=== PATIENT | female | born 1985 | race Caucasian/White ===

== ENCOUNTER 2020-01-06 01:35 | Inpatient (IN) | payer BC ==
[~2020-01-06] VITALS: Ht 175.3 cm; Wt 72.0 kg
[2020-01-06] MEDS ORDERED: ONDANSETRON 2MG/ML, 2ML IVPush ONE (02:00)
[2020-01-06] MEDS ORDERED: SODIUM CHLORIDE FLUSH 10ML SYR IVF ONE (02:00)
[2020-01-06] MEDS ORDERED: SODIUM CHLORIDE 0.9% 1,000ML IVBOLUS ONE (02:00)
[2020-01-06] MEDS ORDERED: HYDROmorphone 2 MG/ML, 1ML ONE ×2 (02:16→05:20)
[2020-01-06] MEDS ORDERED: ONDANSETRON 2MG/ML, 2ML ONE (02:16)
[2020-01-06] MEDS: HYDROmorphone 2 MG/ML, 1ML IVPush PRN ×2 (02:19→03:00)
[2020-01-06 02:25] LABS: BASOPHILS % (AUTO) 2 % (0-1); EOSINOPHILS % (AUTO) 4 % (1-7); LYMPHOCYTES % (AUTO) 35 % (22-44); MEAN CORPUSCULAR HEMOGLOBIN 31.8 pg (27.0-34.8); MEAN CORPUSCULAR HGB CONC 33.6 g/dL (32.4-35.8); MEAN PLATELET VOLUME 7.7 fL (7.4-10.4); MONOCYTES % (AUTO) 10 % (2-9); NEUTROPHILS % (AUTO) 50 % (42-75); PLATELET COUNT 484 x10^3/uL (130-400); RED BLOOD COUNT 4.27 x10^6/uL (3.82-5.3); RED CELL DISTRIBUTION WIDTH 12.9 % (9.6-15.2)
[2020-01-06 02:26] LABS: MD NO
--- NOTE | 2020-01-06 02:26 | NUR ---
IVF INFUSING, WO. MEDICATED PER ORDER. PT IN NAD, RR EQUAL AND UNLABORED. VSS. WILL CONTINUE TO MONITOR.
[2020-01-06 02:34] LABS: ALBUMIN 3.2 g/dL (3.4-5.0); ANION GAP 7 mmol/L (5-15); CALCIUM 8.6 mg/dL (8.5-10.1); CHLORIDE 107 mmol/L (98-107)
[2020-01-06 02:39] LABS: ALANINE AMINOTRANSFERASE 24 U/L (12-78); ALKALINE PHOSPHATASE 78 U/L (45-117); BILIRUBIN,TOTAL 0.3 mg/dL (0.2-1.0); CREATININE 0.79 mg/dL (0.55-1.02)
--- NOTE | 2020-01-06 02:52 | NUR ---
VS STABLE, PT SITTING UP TAKING PICTURE. REPORTS PAIN 4/10.
--- NOTE | 2020-01-06 03:16 | NUR ---
IVF INFUSED, RR EQUAL AND UNLABORED. DR SUAREZ TO ADMIT PT FOR INTRACTABLE PAIN.
[2020-01-06] MEDS ORDERED: morphine SULFATE 10 MG/ML, 1ML IVPush PRN (04:00)
[2020-01-06] MEDS: SODIUM CHLORIDE 0.9% 1,000 ML IV SCH ×2 (04:00→10:40)
[2020-01-06] MEDS ORDERED: ONDANSETRON 2MG/ML, 2ML IVPush PRN (04:00)
[2020-01-06] MEDS ORDERED: HYDROmorphone 1 MG/ML, 1ML INJ IM PRN ×2 (05:00→07:00)
--- NOTE | 2020-01-06 05:58 | NUR ---
IVF AT MAINT RATE, WAITING FOR ADMIN. ON CONT PULSE OX B/P.
[2020-01-06] MEDS ORDERED: HYDROcodone/APAP 5/325 TABLET ONE ×3 (06:41→21:04)
[2020-01-06] MEDS: HYDROcodone/APAP 5/325 TABLET PO PRN ×3 (06:43→21:11)
--- NOTE | 2020-01-06 06:47 | NUR ---
LAB DRAWING AM LABS. PT GIVEN X1 PO NORCO FOR BREAK THROUGH 07/04 PAIN. WAITING FOR MED/SURG BED. VSS.
[2020-01-06 07:03] LABS: CHLORIDE 111 mmol/L (98-107)
[2020-01-06 07:06] LABS: ANION GAP 8 mmol/L (5-15); CALCIUM 8.1 mg/dL (8.5-10.1); CREATININE 0.64 mg/dL (0.55-1.02)
--- NOTE | 2020-01-06 07:10 | NUR ---
REPORT TO ADAM SANTILLAN
--- NOTE | 2020-01-06 08:23 | NUR ---
pt placed on hospital bed admitting at beside
[2020-01-06] MEDS ORDERED: LISINOPRIL 10 MG TABLET PO SCH (09:00)
--- NOTE | 2020-01-06 09:00 | NUR ---
REPORT RECEIVED FROM ADAM SANTILLAN, THIS RN ASSUMING CARE.
[2020-01-06 09:02] LABS: CHOL/HDL RATIO 4.1
[2020-01-06 09:03] LABS: LDL/HDL RATIO 2.2 (0.5-3.0)
[2020-01-06] MEDS ORDERED: HYDROmorphone 1 MG/ML, 1ML INJ ONE ×4 (10:08→19:49)
--- NOTE | 2020-01-06 10:16 | NUR ---
TASK RN: PT MED NOTED FOR ABD PAIN, 12/04. PULSE OX IN PLACE, SP02 = 100% ON RA. VSS
[2020-01-06] MEDS: LACTATED RINGERS 1,000 ML IV SCH ×3 (10:29→21:23)
--- NOTE | 2020-01-06 10:30 | NUR ---
PT MEDICATED BY TASK RN FARIBA FOR RIGHT UPPER ABD PAIN THAT RADIATES TO BACK, STATES PAIN HAS BEEN HERE SINCE DX OF PANCREATITIS. PT TOLERATING WATER BUT NOT WANTING TO TAKE ANY OF CLEAR LIQUID TRAY. PT A&O, RESPS EVEN AND UNLABORED. PT EDUCATED REGARDING POC, STILL HOLDING FOR MED/SURG FLOOR. PT ON HOSPITAL BED. PT DENIES ANY NEEDS AT THIS TIME.
--- NOTE | 2020-01-06 10:38 | NUR ---
UC NOTIFIED OF NEED TO REQUEST RECORDS FROM [facility].
--- NOTE | 2020-01-06 10:56 | NUR ---
ASHLYN RN: PT SITTING UP IN BED, USING PHONE TO TEXT. APPEARS MUCH ORE RELAXED, RATES PAIN 7/10. IVF INFUSING W/O DIFFICULTY, VSS, CALL LIGHT W/I REACH
[2020-01-06] MEDS ORDERED: HYDROmorphone 1 MG/ML, 1ML INJ IVPush PRN (11:00)
--- NOTE | 2020-01-06 12:25 | NUR ---
PT STATING ABDOMINAL PAIN INTOLERABLE, REFUSING NORCO STATING THAT IT DID NOT HELP. PT IS A&O, RESPS EVEN AND UNLABORED. KEPT NPO, NO N/V AT THIS TIME. PARTIAL RECORDS RECEIVED FROM [facility], REVIEWED WITH MD JIMENEZ. HOSPITALIST SARBJIT CALLED, NO ANSWER, MESSAGE LEFT WITH CALLBACK REQUEST TO INCREASE FREQUENCE OF DILAUDID DOSING PER PT REQUEST.
--- NOTE | 2020-01-06 12:44 | NUR ---
all imaging results received from [facility], results reviewed with MD Glass.
[2020-01-06] MEDS: HYDROmorphone 1 MG/ML, 1ML INJ IVPush PRN ×4 (13:21→23:06)
--- NOTE | 2020-01-06 13:33 | NUR ---
PT MEDICATED PER EMAR, REPORTING PAIN RELIEF S/P DILAUDID. PT A&O, RESPS EVEN AND UNLABORED. PT ATTACHED TO BP AND SPO2 MONITORS. CALL LIGHT IN EACH. PT EDUCATED TO REMAIN IN BED AND CALL FOR ASSIST NEEDED. PT EDUCATED TO REMAIN NPO. THIS RN SPOKE WITH MK SCHAFFER WHO STATES SURGICAL CONSULT HAS BEEN PLACED, AWAITING SURGEON EVAL AT THIS TIME.
[2020-01-06] MEDS ORDERED: birth control PO (14:47)
[2020-01-06] MEDS ORDERED: SUMA100T3 PO (14:47)
--- NOTE | 2020-01-06 14:48 | NUR ---
lab called RN to notify that pt has an uncollected ua order. pt states she voided approx 30 min ago. supplies provided at bedside for clean catch. pt instructed to provide urine sample when able. call light in reach. pt a&o, resps even and unlabored. pt reports abd pain at tolerable level. pt denies needs at this time.
--- NOTE | 2020-01-06 15:20 | NUR ---
report given to RNs Anastasiia and Shirin at bedside. pt a&o, resps even and unlabored. pt has no complaint at this time. plan of care reviewed at bedside.
--- NOTE | 2020-01-06 15:52 | NUR ---
PT RESTING IN GURNEY, PT STATES PAIN IS 9/10. PT MEDICATED PER EMAR, NO OTHER COMPLAINTS AT THIS TIME.
--- NOTE | 2020-01-06 17:35 | NUR ---
PRECEPTOR RN: PREVIOUS 22G PIV INFILTRATED, NEW PIV PLACED BY THIS RN
[2020-01-06 18:18] LABS: MICROSCOPIC AUTO
--- NOTE | 2020-01-06 20:21 | NUR ---
PT RESTING IN [facility], NO COMPLAINTS AT THIS TIME.
--- NOTE | 2020-01-06 21:46 | NUR ---
PT RESTING IN GURNEY, NO COMPLAINTS AT THIS TIME. PT AMBULATED TO BATHROOM STEADILY.
--- NOTE | 2020-01-06 22:41 | NUR ---
BREAK RN: REPORT GIVEN TO ADAM ALEXANDRE. PLAN OF CARE DISCUSSED
[2020-01-06 23:10] VITALS: BP 135/89
[2020-01-06] MEDS ORDERED: ONDA4TAB7 PO (23:21)
[2020-01-07 01:25] VITALS: BP 127/79
[2020-01-07] MEDS: HYDROcodone/APAP 5/325 TABLET PO PRN ×5 (01:40→21:34)
[2020-01-07] MEDS: LACTATED RINGERS 1,000 ML IV SCH ×5 (01:44→20:00)
[2020-01-07] MEDS: HYDROmorphone 1 MG/ML, 1ML INJ IVPush PRN ×7 (02:37→23:07)
[2020-01-07 05:33] LABS: BASOPHILS % (AUTO) 1 % (0-1); EOSINOPHILS % (AUTO) 3 % (1-7); LYMPHOCYTES % (AUTO) 35 % (22-44); MEAN CORPUSCULAR HEMOGLOBIN 31.7 pg (27.0-34.8); MEAN CORPUSCULAR HGB CONC 33.2 g/dL (32.4-35.8); MEAN PLATELET VOLUME 8.1 fL (7.4-10.4); MONOCYTES % (AUTO) 8 % (2-9); NEUTROPHILS % (AUTO) 54 % (42-75); PLATELET COUNT 405 x10^3/uL (130-400); RED BLOOD COUNT 3.67 x10^6/uL (3.82-5.3); RED CELL DISTRIBUTION WIDTH 12.7 % (9.6-15.2)
[2020-01-07 05:42] LABS: ANION GAP 9 mmol/L (5-15); CALCIUM 8.2 mg/dL (8.5-10.1); CHLORIDE 109 mmol/L (98-107)
[2020-01-07 05:44] LABS: CREATININE 0.62 mg/dL (0.55-1.02); MD NO
[2020-01-07 06:15] VITALS: BP 124/85
[2020-01-07 13:58] VITALS: BP 136/69
[2020-01-07 19:35] VITALS: BP 127/77
[2020-01-07] MEDS: ONDANSETRON 2MG/ML, 2ML IVPush PRN (19:48)
[2020-01-08] MEDS: LACTATED RINGERS 1,000 ML IV SCH ×5 (01:06→23:10)
[2020-01-08 01:55] VITALS: BP 110/72
[2020-01-08] MEDS: HYDROmorphone 1 MG/ML, 1ML INJ IVPush PRN ×8 (02:11→23:49)
[2020-01-08 05:47] LABS: BASOPHILS % (AUTO) 1 % (0-1); EOSINOPHILS % (AUTO) 3 % (1-7); LYMPHOCYTES % (AUTO) 34 % (22-44); MEAN CORPUSCULAR HEMOGLOBIN 31.6 pg (27.0-34.8); MEAN CORPUSCULAR HGB CONC 33.3 g/dL (32.4-35.8); MEAN PLATELET VOLUME 8.2 fL (7.4-10.4); MONOCYTES % (AUTO) 7 % (2-9); NEUTROPHILS % (AUTO) 56 % (42-75); PLATELET COUNT 506 x10^3/uL (130-400); RED BLOOD COUNT 4.03 x10^6/uL (3.82-5.3); RED CELL DISTRIBUTION WIDTH 12.9 % (9.6-15.2)
[2020-01-08] MEDS: HYDROcodone/APAP 5/325 TABLET PO PRN ×4 (06:06→20:12)
[2020-01-08 06:08] LABS: MD NO
[2020-01-08 06:11] LABS: CHLORIDE 109 mmol/L (98-107)
[2020-01-08 06:25] LABS: ALANINE AMINOTRANSFERASE 23 U/L (12-78); ALBUMIN 3.2 g/dL (3.4-5.0); ALKALINE PHOSPHATASE 75 U/L (45-117); ANION GAP 13 mmol/L (5-15); BILIRUBIN,TOTAL 0.3 mg/dL (0.2-1.0); CALCIUM 9.1 mg/dL (8.5-10.1); CREATININE 0.73 mg/dL (0.55-1.02); TOTAL PROTEIN 6.9 g/dL (6.4-8.2)
[2020-01-08 08:00] VITALS: BP 112/76
[2020-01-08 13:37] VITALS: BP 128/79
[2020-01-08 20:48] VITALS: BP 144/90
[2020-01-09] MEDS: HYDROcodone/APAP 5/325 TABLET PO PRN ×6 (00:50→21:42)
[2020-01-09 00:53] VITALS: BP 125/78
[2020-01-09] MEDS: HYDROmorphone 1 MG/ML, 1ML INJ IVPush PRN ×6 (04:06→21:41)
[2020-01-09] MEDS: LACTATED RINGERS 1,000 ML IV SCH ×3 (04:55→20:54)
[2020-01-09 05:29] LABS: ALBUMIN 2.8 g/dL (3.4-5.0); ANION GAP 9 mmol/L (5-15); CALCIUM 8.8 mg/dL (8.5-10.1); CHLORIDE 109 mmol/L (98-107)
[2020-01-09 05:32] LABS: ALANINE AMINOTRANSFERASE 17 U/L (12-78); ALKALINE PHOSPHATASE 64 U/L (45-117); BILIRUBIN,TOTAL 0.4 mg/dL (0.2-1.0); CREATININE 0.66 mg/dL (0.55-1.02); TOTAL PROTEIN 6.2 g/dL (6.4-8.2)
[2020-01-09 08:07] VITALS: BP 123/80
[2020-01-09 12:26] VITALS: BP 125/84
[2020-01-09] MEDS: ONDANSETRON 2MG/ML, 2ML IVPush PRN (20:54)
[2020-01-09 21:40] VITALS: BP 121/83
[2020-01-10] MEDS: HYDROmorphone 1 MG/ML, 1ML INJ IVPush PRN ×11 (00:51→23:18)
[2020-01-10] MEDS: HYDROcodone/APAP 5/325 TABLET PO PRN ×4 (01:56→21:11)
[2020-01-10] MEDS: LACTATED RINGERS 1,000 ML IV SCH ×3 (01:57→19:23)
[2020-01-10 01:59] VITALS: BP 123/88
[2020-01-10 05:48] LABS: BASOPHILS % (AUTO) 1 % (0-1); EOSINOPHILS % (AUTO) 3 % (1-7); LYMPHOCYTES % (AUTO) 43 % (22-44); MEAN CORPUSCULAR HEMOGLOBIN 31.6 pg (27.0-34.8); MEAN CORPUSCULAR HGB CONC 33.5 g/dL (32.4-35.8); MEAN PLATELET VOLUME 8.1 fL (7.4-10.4); MONOCYTES % (AUTO) 8 % (2-9); NEUTROPHILS % (AUTO) 46 % (42-75); PLATELET COUNT 432 x10^3/uL (130-400); RED BLOOD COUNT 3.68 x10^6/uL (3.82-5.3); RED CELL DISTRIBUTION WIDTH 12.4 % (9.6-15.2)
[2020-01-10 05:54] LABS: ANION GAP 7 mmol/L (5-15); CALCIUM 8.4 mg/dL (8.5-10.1); CHLORIDE 108 mmol/L (98-107); CREATININE 0.73 mg/dL (0.55-1.02); MD NO
[2020-01-10 07:43] LABS: INTERNATIONAL NORMALIZED RATIO 1.01 (0.93-1.1); PROTHROMBIN TIME 10.7 Seconds (9.6-11.5)
[2020-01-10 08:12] VITALS: BP 128/82
[2020-01-10] MEDS ORDERED: EPINEPHRINE 1 MG/ML, 1ML ONE (08:34)
[2020-01-10] MEDS ORDERED: BUPIVACAINE/PF 0.5% ONE (08:34)
[2020-01-10] MEDS ORDERED: MIDAZOLAM 1 MG/ML, 2ML ONE (09:16)
[2020-01-10] MEDS ORDERED: FENTANYL PF 100 MCG/2ML ONE (09:18)
[2020-01-10] MEDS ORDERED: DIAZEPAM 5 MG/ML, 2ML IVPush PRN (09:30)
[2020-01-10] MEDS ORDERED: ACETAMINOPHEN 325 MG TABLET PO PRN (09:30)
[2020-01-10] MEDS ORDERED: DIPHENHYDRAMINE 50 MG/ML, 1ML IVPush PRN (09:30)
[2020-01-10] MEDS ORDERED: PROMETHAZINE 25 MG/ML, 1ML IVPush PRN (09:30)
[2020-01-10] MEDS ORDERED: OXYcodone 5 MG/5 ML ORAL.SOL UDC PO PRN (09:30)
[2020-01-10] MEDS ORDERED: ONDANSETRON 2MG/ML, 2ML IVPush PRN (09:30)
[2020-01-10] MEDS ORDERED: MEPERIDINE/PF 25MG/0.5ML IVPush PRN (09:30)
[2020-01-10] MEDS ORDERED: hydrALAzine 20 MG/ML, 1ML IV PRN (09:30)
[2020-01-10] MEDS ORDERED: LABETALOL 5MG/ML, 20ML IV PRN (09:30)
[2020-01-10] MEDS ORDERED: CEFAZOLIN 1,000 MG ONE (09:58)
[2020-01-10] MEDS ORDERED: ROCURONIUM 10 MG/ML,10ML ONE (09:58)
[2020-01-10] MEDS ORDERED: SUGAMMADEX 200 MG/2 ML IVPush ONE (09:58)
[2020-01-10] MEDS ORDERED: ONDANSETRON 2MG/ML, 2ML ONE (09:58)
[2020-01-10] MEDS ORDERED: PROPOFOL 10 MG/ML, 20ML ONE (09:58)
[2020-01-10] MEDS ORDERED: BUPIVACAINE/PF 0.5% INFIL ONE (10:05)
[2020-01-10] MEDS ORDERED: OXYcodone 5 MG/5 ML ORAL.SOL UDC ONE (10:54)
[2020-01-10] MEDS ORDERED: PROMETHAZINE 25 MG/ML, 1ML ONE (10:54)
[2020-01-10] MEDS ORDERED: HYDROmorphone 1 MG/ML, 1ML INJ ONE ×2 (10:54→11:10)
[2020-01-10 12:02] VITALS: BP 154/99
[2020-01-10 20:21] VITALS: BP 149/94
[2020-01-10] MEDS: ONDANSETRON 2MG/ML, 2ML IVPush PRN (21:11)
[2020-01-10 23:20] VITALS: BP 139/90
[2020-01-11 01:05] VITALS: BP 109/76
[2020-01-11 01:09] VITALS: BP 118/77
[2020-01-11] MEDS: HYDROcodone/APAP 5/325 TABLET PO PRN ×3 (01:11→09:57)
[2020-01-11] MEDS: LACTATED RINGERS 1,000 ML IV SCH ×2 (02:17→10:00)
[2020-01-11] MEDS: HYDROmorphone 1 MG/ML, 1ML INJ IVPush PRN ×3 (02:18→08:33)
[2020-01-11] MEDS: ONDANSETRON 2MG/ML, 2ML IVPush PRN (06:03)
[2020-01-11] MEDS ORDERED: HYDR-3237 PO (09:07)
[2020-01-11] MEDS ORDERED: DOCU-131 PO (09:07)
== END 2020-01-11 10:50 | disposition home or self-care (01) | DRG 419 ==
LOC: ED 02:38 → EDIP 03:17 → 4NE 22:56 → DCLOUNGE 01-11 10:38
PROVIDERS: ADMIT Family Medicine; ATTEND Family Medicine
PROC: 0FT44ZZ Resection of Gallbladder, Percutaneous Endoscopic Approach (ICD-10-PCS; principal; 2020-01-10 10:00)
DX: K85.10 Biliary acute pancreatitis without necrosis or infection (principal); Z20.828 Contact with and (suspected) exposure to other viral communicable diseases; E83.42 Hypomagnesemia; I10 Essential (primary) hypertension; K80.20 Calculus of gallbladder without cholecystitis without obstruction; K90.0 Celiac disease; G43.909 Migraine, unspecified, not intractable, without status migrainosus; K85.30 Drug induced acute pancreatitis without necrosis or infection; R74.8 Abnormal levels of other serum enzymes; D47.3 Essential (hemorrhagic) thrombocythemia; Z90.49 Acquired absence of other specified parts of digestive tract; Z88.8 Allergy status to other drugs, medicaments and biological substances; Z88.5 Allergy status to narcotic agent; Z79.899 Other long term (current) drug therapy; E86.0 Dehydration
CPT/HCPCS: 36415; 96374; 96375; 96376; 99285; S0020; 74170; 76700; 80048; 80053; 80061; 81001; 82787; 83690; 83735; 84100; 84702; 84703; 85025; 85610; 87635; 88304; G0378; J0171; J0690; J1170; J2250; J2405; J2550; J2704; J3010; J7030; J7120

== ENCOUNTER 2020-02-10 10:48 | Emergency (ER) | payer BC ==
[~2020-02-10] VITALS: Ht 175.3 cm; Wt 71.3 kg
[~2020-02-10 10:48] MED LIST: DOCU-131 PO; HYDR-3237 PO; ONDA4TAB7 PO; SUMA100T3 PO; birth control PO
[2020-02-10 11:21] LABS: BASOPHILS % (AUTO) 1 % (0-1); EOSINOPHILS % (AUTO) 1 % (1-7); LYMPHOCYTES % (AUTO) 39 % (22-44); MEAN CORPUSCULAR HEMOGLOBIN 31.1 pg (27.0-34.8); MEAN CORPUSCULAR HGB CONC 33.7 g/dL (32.4-35.8); MEAN PLATELET VOLUME 8.1 fL (7.4-10.4); MONOCYTES % (AUTO) 5 % (2-9); NEUTROPHILS % (AUTO) 54 % (42-75); PLATELET COUNT 387 x10^3/uL (130-400); RED BLOOD COUNT 4.42 x10^6/uL (3.82-5.3); RED CELL DISTRIBUTION WIDTH 12.2 % (9.6-15.2)
[2020-02-10 11:23] LABS: MD NO
[2020-02-10 11:32] LABS: ALANINE AMINOTRANSFERASE 14 U/L (12-78); ALBUMIN 3.7 g/dL (3.4-5.0); ANION GAP 5 mmol/L (5-15); CHLORIDE 111 mmol/L (98-107); CREATININE 0.85 mg/dL (0.55-1.02)
[2020-02-10 11:34] LABS: ALKALINE PHOSPHATASE 86 U/L (45-117); BILIRUBIN,TOTAL 0.4 mg/dL (0.2-1.0); TOTAL PROTEIN 7.5 g/dL (6.4-8.2)
--- NOTE | 2020-02-10 11:37 | NUR ---
ROTARY DRIER FEEDER: PT AMBULATORY TO ROOM FROM LOBBY
[2020-02-10] MEDS ORDERED: ONDANSETRON 2MG/ML, 2ML IVPush ONE (12:30)
[2020-02-10] MEDS ORDERED: SODIUM CHLORIDE FLUSH 10ML SYR IVF ONE (12:30)
[2020-02-10] MEDS ORDERED: HYDROmorphone 2 MG/ML, 1ML IVPush PRN (12:30)
[2020-02-10] MEDS ORDERED: ONDANSETRON 2MG/ML, 2ML ONE (12:58)
[2020-02-10] MEDS ORDERED: HYDROmorphone 2 MG/ML, 1ML ONE (12:58)
[2020-02-10] MEDS ORDERED: OMNIPAQUE 350 MG/ML, 100ML BOTTLE ONE (13:54)
[2020-02-10] MEDS ORDERED: MAALOX/HYOSCYAMINE/LIDOCAINE 45 ML BTL ONE (14:17)
[2020-02-10] MEDS ORDERED: MAALOX/HYOSCYAMINE/LIDOCAINE 45 ML BTL PO ONE (14:30)
[2020-02-10 15:08] VITALS: BP 140/91
== END 2020-02-10 15:20 | disposition home or self-care (01) ==
LOC: ED 12:33
DX: K29.00 Acute gastritis without bleeding (principal); R10.13 Epigastric pain; Z90.49 Acquired absence of other specified parts of digestive tract
CPT/HCPCS: 36415; 74177; 80053; 83690; 85025; 96374; 96375; 99285; J1170; J2405; Q9967

== ENCOUNTER 2020-08-11 04:36 | Inpatient (IN) | payer BC ==
[~2020-08-11] VITALS: Ht 175.3 cm; Wt 70.9 kg
[2020-08-11] MEDS ORDERED: HYDROmorphone 1 MG/ML, 1ML INJ ONE ×2 (05:27→07:08)
[2020-08-11] MEDS ORDERED: PROMETHAZINE 25 MG/ML, 1ML ONE (05:27)
[2020-08-11] MEDS ORDERED: HYDROmorphone 1 MG/ML, 1ML INJ IV ONE ×2 (05:30→07:30)
[2020-08-11] MEDS ORDERED: SODIUM CHLORIDE 0.9% 1,000ML IVBOLUS ONE (05:30)
[2020-08-11] MEDS ORDERED: SODIUM CHLORIDE 0.9% 1,000 ML IV ONE (05:30)
[2020-08-11] MEDS ORDERED: PROMETHAZINE 25 MG/ML, 1ML IM ONE (05:30)
[2020-08-11] MEDS ORDERED: SODIUM CHLORIDE FLUSH 10ML SYR IVF ONE (05:30)
[2020-08-11 05:51] LABS: BASOPHILS % (AUTO) 0 % (0-1); EOSINOPHILS % (AUTO) 1 % (1-7); LYMPHOCYTES % (AUTO) 19 % (22-44); MEAN CORPUSCULAR HEMOGLOBIN 30.9 pg (27.0-34.8); MEAN CORPUSCULAR HGB CONC 34.3 g/dL (32.4-35.8); MEAN PLATELET VOLUME 7.6 fL (7.4-10.4); MONOCYTES % (AUTO) 5 % (2-9); NEUTROPHILS % (AUTO) 75 % (42-75); PLATELET COUNT 372 x10^3/uL (130-400); RED BLOOD COUNT 4.55 x10^6/uL (3.82-5.3); RED CELL DISTRIBUTION WIDTH 13.3 % (9.6-15.2)
[2020-08-11 06:05] LABS: ANION GAP 11 mmol/L (5-15); CALCIUM 8.4 mg/dL (8.5-10.1); CHLORIDE 110 mmol/L (98-107); CREATININE 0.88 mg/dL (0.55-1.02)
[2020-08-11 06:06] LABS: ALANINE AMINOTRANSFERASE 58 U/L (12-78); ALBUMIN 3.6 g/dL (3.4-5.0)
[2020-08-11 06:10] LABS: ALKALINE PHOSPHATASE 73 U/L (45-117); BILIRUBIN,TOTAL 0.5 mg/dL (0.2-1.0); TOTAL PROTEIN 7.2 g/dL (6.4-8.2)
--- NOTE | 2020-08-11 06:50 | NUR ---
Report to Solange MEDINA
--- NOTE | 2020-08-11 06:51 | NUR ---
REPORT FROM LIONEL, ASSUME CARE OF PT AT THIS TIME.
[2020-08-11] MEDS ORDERED: ONDANSETRON 2MG/ML, 2ML ONE (07:08)
--- NOTE | 2020-08-11 07:19 | NUR ---
PT MEDICATED PER ERP ORDER. PT STATES +NAUSEA, PAIN AT 9/10. MED REC COMPLETED. CALL LIGHT WITHIN REACH.
[2020-08-11] MEDS ORDERED: SODIUM CHLORIDE FLUSH 10ML SYR IVF PRN (07:30)
[2020-08-11] MEDS ORDERED: ONDANSETRON 2MG/ML, 2ML IVPush ONE (07:30)
--- NOTE | 2020-08-11 07:45 | NUR ---
ATTEMPT TO CALL REPORT, UNABLE TO TAKE REPORT, NEED NEW ROOM ASSIGNMENT. THROUGHPUT RN NOTIFIED.
[2020-08-11] MEDS ORDERED: ACETAMINOPHEN 325 MG TABLET PO PRN (08:00)
[2020-08-11] MEDS ORDERED: OXYcodone IR 5MG TABLET PO PRN (08:00)
[2020-08-11] MEDS ORDERED: TRAZODONE 50MG TABLET PO PRN (08:00)
--- NOTE | 2020-08-11 08:14 | NUR ---
ATTEMPT TO CALL REPORT, RN UNAVAILABLE, WILL CALL BACK.
--- NOTE | 2020-08-11 08:30 | NUR ---
ATTEMPT TO CALL REPORT AGAIN, RN STILL UNAVAILABLE. REQUEST MADE TO GIVE REPORT TO BEADING MACHINE OPERATOR.
--- NOTE | 2020-08-11 09:05 | NUR ---
REPORT TO VERONA MEDINA, PT READY FOR TRANSPORT.
[2020-08-11] MEDS: ENOXAPARIN 40 MG/0.4 ML SQ SCH (10:00)
[2020-08-11] MEDS: ONDANSETRON 2MG/ML, 2ML IVPush PRN ×2 (11:05→17:28)
[2020-08-11 11:20] VITALS: BP 134/72
[2020-08-11] MEDS ORDERED: HYDROmorphone PCA 30 MG/30 ML IV PRN ×4 (13:00→16:30)
[2020-08-11 13:52] VITALS: BP 147/89
[2020-08-11] MEDS: POTASSIUM CHLORIDE 20 MEQ in LACTATED RINGERS 1,000 ML IV SCH ×2 (17:28→23:45)
[2020-08-11 20:45] LABS: MICROSCOPIC NOT IND
[2020-08-11 22:32] VITALS: BP 150/95
[2020-08-12 00:09] VITALS: BP 142/97
[2020-08-12] MEDS ORDERED: HYDROmorphone 1 MG/ML, 1ML INJ IV ONE (01:30)
[2020-08-12 05:43] LABS: BASOPHILS % (AUTO) 1 % (0-1); EOSINOPHILS % (AUTO) 2 % (1-7); LYMPHOCYTES % (AUTO) 32 % (22-44); MEAN CORPUSCULAR HEMOGLOBIN 30.5 pg (27.0-34.8); MEAN CORPUSCULAR HGB CONC 33.7 g/dL (32.4-35.8); MEAN PLATELET VOLUME 8.1 fL (7.4-10.4); MONOCYTES % (AUTO) 6 % (2-9); NEUTROPHILS % (AUTO) 59 % (42-75); PLATELET COUNT 288 x10^3/uL (130-400); RED BLOOD COUNT 4.08 x10^6/uL (3.82-5.3); RED CELL DISTRIBUTION WIDTH 13.4 % (9.6-15.2)
[2020-08-12 05:52] LABS: ANION GAP 6 mmol/L (5-15); CHLORIDE 111 mmol/L (98-107); CREATININE 0.61 mg/dL (0.55-1.02)
[2020-08-12 07:03] VITALS: BP 160/98
[2020-08-12] MEDS: ENOXAPARIN 40 MG/0.4 ML SQ SCH (09:09)
[2020-08-12] MEDS: POTASSIUM CHLORIDE 20 MEQ in LACTATED RINGERS 1,000 ML IV SCH ×2 (10:04→16:58)
[2020-08-12 12:57] VITALS: BP 133/87
[2020-08-12] MEDS: HYDROmorphone PCA 30 MG/30 ML IV PRN (15:12)
[2020-08-12 19:54] VITALS: BP 141/94
[2020-08-13] MEDS: POTASSIUM CHLORIDE 20 MEQ in LACTATED RINGERS 1,000 ML IV SCH ×2 (00:40→07:26)
[2020-08-13 01:03] VITALS: BP 126/82
[2020-08-13 05:30] LABS: ANION GAP 10 mmol/L (5-15); CALCIUM 8.2 mg/dL (8.5-10.1); CHLORIDE 106 mmol/L (98-107); CREATININE 0.51 mg/dL (0.55-1.02)
[2020-08-13 07:22] VITALS: BP 129/84
[2020-08-13] MEDS: HYDROmorphone PCA 30 MG/30 ML IV PRN (10:13)
[2020-08-13] MEDS: D5%-0.45% NACL 1,000 ML IV SCH ×2 (10:26→17:47)
[2020-08-13] MEDS: ENOXAPARIN 40 MG/0.4 ML SQ SCH (10:27)
[2020-08-13] MEDS: ONDANSETRON 2MG/ML, 2ML IVPush PRN ×2 (10:27→14:32)
[2020-08-13 13:20] VITALS: BP 171/93
[2020-08-13] MEDS: metroNIDAZOLE 250 MG TABLET PO SCH ×2 (13:55→20:15)
[2020-08-13] MEDS: TETRACYCLINE HCL 250 MG CAPSULE PO SCH ×2 (13:55→20:00)
[2020-08-13] MEDS: PINK BISMUTH 87.33 MG/5 ML ORAL SUSP PO SCH ×2 (13:56→22:26)
[2020-08-13] MEDS: OMEPRAZOLE 20 MG CAPSULE.DR PO SCH (17:10)
[2020-08-13] MEDS: METOCLOPRAMIDE 5 MG/ML, 2ML IVPush PRN (18:13)
[2020-08-13 18:46] LABS: MICROSCOPIC INDICATED
[2020-08-13 19:48] VITALS: BP 147/98
[2020-08-14] MEDS: D5%-0.45% NACL 1,000 ML IV SCH ×4 (00:19→20:08)
[2020-08-14 00:49] VITALS: BP 144/97
[2020-08-14] MEDS: metroNIDAZOLE 250 MG TABLET PO SCH ×4 (01:51→20:08)
[2020-08-14] MEDS: TETRACYCLINE HCL 250 MG CAPSULE PO SCH ×4 (01:51→20:09)
[2020-08-14] MEDS: HYDROmorphone PCA 30 MG/30 ML IV PRN ×2 (03:23→19:27)
[2020-08-14] MEDS: PINK BISMUTH 87.33 MG/5 ML ORAL SUSP PO SCH ×4 (03:52→22:35)
[2020-08-14] MEDS: OMEPRAZOLE 20 MG CAPSULE.DR PO SCH ×2 (05:54→17:00)
[2020-08-14 08:19] VITALS: BP 118/79
[2020-08-14] MEDS: ENOXAPARIN 40 MG/0.4 ML SQ SCH (09:33)
[2020-08-14] MEDS: METOCLOPRAMIDE 5 MG/ML, 2ML IVPush PRN (11:32)
[2020-08-14] MEDS ORDERED: OMNIPAQUE 350 MG/ML, 100ML BOTTLE ONE (12:10)
[2020-08-14 14:02] VITALS: BP 133/87
[2020-08-14 18:52] VITALS: BP 128/88
[2020-08-14] MEDS: BISACODYL 10 MG SUPP PR SCH (21:59)
[2020-08-14] MEDS: DOCUSATE 100 MG CAPSULE PO SCH (21:59)
[2020-08-14] MEDS: ONDANSETRON 2MG/ML, 2ML IVPush PRN (22:44)
[2020-08-15 00:35] VITALS: BP 131/87
[2020-08-15] MEDS: TETRACYCLINE HCL 250 MG CAPSULE PO SCH ×4 (02:29→20:15)
[2020-08-15] MEDS: metroNIDAZOLE 250 MG TABLET PO SCH ×4 (02:29→20:15)
[2020-08-15] MEDS: D5%-0.45% NACL 1,000 ML IV SCH (02:31)
[2020-08-15] MEDS: PINK BISMUTH 87.33 MG/5 ML ORAL SUSP PO SCH ×4 (04:20→22:21)
[2020-08-15 05:16] LABS: BASOPHILS % (AUTO) 1 % (0-1); EOSINOPHILS % (AUTO) 2 % (1-7); LYMPHOCYTES % (AUTO) 43 % (22-44); MEAN CORPUSCULAR HEMOGLOBIN 31.3 pg (27.0-34.8); MEAN CORPUSCULAR HGB CONC 34.6 g/dL (32.4-35.8); MEAN PLATELET VOLUME 8.1 fL (7.4-10.4); MONOCYTES % (AUTO) 8 % (2-9); NEUTROPHILS % (AUTO) 46 % (42-75); PLATELET COUNT 262 x10^3/uL (130-400); RED CELL DISTRIBUTION WIDTH 13.2 % (9.6-15.2)
[2020-08-15 05:23] LABS: ALBUMIN 2.8 g/dL (3.4-5.0); ANION GAP 7 mmol/L (5-15); CALCIUM 8.1 mg/dL (8.5-10.1); CHLORIDE 108 mmol/L (98-107)
[2020-08-15 05:25] LABS: ALANINE AMINOTRANSFERASE 60 U/L (12-78); ALKALINE PHOSPHATASE 97 U/L (45-117); BILIRUBIN,TOTAL 0.4 mg/dL (0.2-1.0)
[2020-08-15] MEDS: OMEPRAZOLE 20 MG CAPSULE.DR PO SCH ×2 (06:26→16:25)
[2020-08-15] MEDS: D5%-0.45NACL+KCL 20MEQ 1,000 ML IV SCH ×3 (07:13→22:21)
[2020-08-15 07:18] VITALS: BP 144/97
[2020-08-15] MEDS: ONDANSETRON 2MG/ML, 2ML IVPush PRN (09:40)
[2020-08-15] MEDS: ENOXAPARIN 40 MG/0.4 ML SQ SCH (09:40)
[2020-08-15] MEDS: DOCUSATE 100 MG CAPSULE PO SCH ×2 (09:41→20:15)
[2020-08-15] MEDS ORDERED: SIMETHICONE 80 MG CHEW TAB PO PRN (11:30)
[2020-08-15 13:16] VITALS: BP 127/88
[2020-08-15] MEDS: HYDROmorphone PCA 30 MG/30 ML IV PRN (14:14)
[2020-08-15 19:14] VITALS: BP 142/91
[2020-08-15] MEDS: BISACODYL 10 MG SUPP PR SCH (20:17)
[2020-08-15 23:27] VITALS: BP 108/70
[2020-08-16] MEDS: TETRACYCLINE HCL 250 MG CAPSULE PO SCH ×4 (01:57→20:14)
[2020-08-16] MEDS: metroNIDAZOLE 250 MG TABLET PO SCH ×4 (01:58→20:14)
[2020-08-16] MEDS: PINK BISMUTH 87.33 MG/5 ML ORAL SUSP PO SCH ×4 (04:01→22:21)
[2020-08-16] MEDS: OMEPRAZOLE 20 MG CAPSULE.DR PO SCH ×2 (05:51→17:25)
[2020-08-16 06:56] VITALS: BP 133/88
[2020-08-16] MEDS: HYDROmorphone PCA 30 MG/30 ML IV PRN (06:59)
[2020-08-16] MEDS: D5%-0.45NACL+KCL 20MEQ 1,000 ML IV SCH ×2 (06:59→17:26)
[2020-08-16] MEDS: BISACODYL 10 MG SUPP PR SCH (09:00)
[2020-08-16] MEDS: DOCUSATE 100 MG CAPSULE PO SCH ×2 (09:31→20:14)
[2020-08-16] MEDS: ENOXAPARIN 40 MG/0.4 ML SQ SCH (09:32)
[2020-08-16] MEDS: ONDANSETRON 2MG/ML, 2ML IVPush PRN (10:44)
[2020-08-16 14:28] VITALS: BP 133/88
[2020-08-16 18:52] VITALS: BP 129/82
[2020-08-17] MEDS: D5%-0.45NACL+KCL 20MEQ 1,000 ML IV SCH ×4 (00:39→22:13)
[2020-08-17 01:16] VITALS: BP 145/95
[2020-08-17] MEDS: HYDROmorphone PCA 30 MG/30 ML IV PRN ×2 (01:33→22:13)
[2020-08-17] MEDS: TETRACYCLINE HCL 250 MG CAPSULE PO SCH ×4 (01:56→19:40)
[2020-08-17] MEDS: metroNIDAZOLE 250 MG TABLET PO SCH ×4 (01:56→19:40)
[2020-08-17] MEDS: ONDANSETRON 2MG/ML, 2ML IVPush PRN ×2 (02:37→16:54)
[2020-08-17] MEDS: PINK BISMUTH 87.33 MG/5 ML ORAL SUSP PO SCH ×4 (04:15→22:13)
[2020-08-17 04:25] LABS: BASOPHILS % (AUTO) 1 % (0-1); EOSINOPHILS % (AUTO) 2 % (1-7); LYMPHOCYTES % (AUTO) 37 % (22-44); MEAN CORPUSCULAR HGB CONC 34.1 g/dL (32.4-35.8); MEAN PLATELET VOLUME 8.1 fL (7.4-10.4); MONOCYTES % (AUTO) 8 % (2-9); NEUTROPHILS % (AUTO) 52 % (42-75); PLATELET COUNT 263 x10^3/uL (130-400); RED BLOOD COUNT 3.87 x10^6/uL (3.82-5.3); RED CELL DISTRIBUTION WIDTH 13.2 % (9.6-15.2)
[2020-08-17 04:38] LABS: ALANINE AMINOTRANSFERASE 43 U/L (12-78); ALBUMIN 2.9 g/dL (3.4-5.0); ANION GAP 8 mmol/L (5-15); CALCIUM 8.4 mg/dL (8.5-10.1); CHLORIDE 110 mmol/L (98-107)
[2020-08-17 04:40] LABS: ALKALINE PHOSPHATASE 81 U/L (45-117); BILIRUBIN,TOTAL 0.6 mg/dL (0.2-1.0); CREATININE 0.63 mg/dL (0.55-1.02)
[2020-08-17 06:30] VITALS: BP 151/92
[2020-08-17] MEDS: OMEPRAZOLE 20 MG CAPSULE.DR PO SCH ×2 (07:59→16:54)
[2020-08-17] MEDS: DOCUSATE 100 MG CAPSULE PO SCH ×2 (07:59→19:40)
[2020-08-17] MEDS: BISACODYL 10 MG SUPP PR SCH (08:07)
[2020-08-17] MEDS: ENOXAPARIN 40 MG/0.4 ML SQ SCH (08:08)
[2020-08-17 12:49] VITALS: BP 125/80
[2020-08-17 20:09] VITALS: BP 143/89
[2020-08-18] MEDS ORDERED: TETRACYCLINE HCL 250 MG CAPSULE ONE ×3 (02:16→13:57)
[2020-08-18] MEDS: TETRACYCLINE HCL 250 MG CAPSULE PO SCH ×4 (02:18→21:15)
[2020-08-18] MEDS: metroNIDAZOLE 250 MG TABLET PO SCH ×4 (02:18→20:23)
[2020-08-18 03:09] LABS: ALANINE AMINOTRANSFERASE 35 U/L (12-78); ALBUMIN 2.7 g/dL (3.4-5.0); ANION GAP 7 mmol/L (5-15); CALCIUM 8.2 mg/dL (8.5-10.1); CHLORIDE 109 mmol/L (98-107); CREATININE 0.66 mg/dL (0.55-1.02)
[2020-08-18 03:11] LABS: ALKALINE PHOSPHATASE 76 U/L (45-117); BILIRUBIN,TOTAL 0.4 mg/dL (0.2-1.0); TOTAL PROTEIN 5.8 g/dL (6.4-8.2)
[2020-08-18 04:51] VITALS: BP 143/86
[2020-08-18] MEDS: PINK BISMUTH 87.33 MG/5 ML ORAL SUSP PO SCH ×4 (04:55→23:28)
[2020-08-18] MEDS: OMEPRAZOLE 20 MG CAPSULE.DR PO SCH ×2 (04:55→15:58)
[2020-08-18] MEDS: D5%-0.45NACL+KCL 20MEQ 1,000 ML IV SCH ×2 (05:09→13:33)
[2020-08-18 06:56] VITALS: BP 113/67
[2020-08-18] MEDS: ENOXAPARIN 40 MG/0.4 ML SQ SCH (07:47)
[2020-08-18] MEDS: BISACODYL 10 MG SUPP PR SCH (07:47)
[2020-08-18] MEDS ORDERED: metroNIDAZOLE 500 MG TABLET ONE ×2 (08:00→10:03)
[2020-08-18] MEDS: DOCUSATE 100 MG CAPSULE PO SCH ×2 (08:04→20:22)
[2020-08-18] MEDS: ONDANSETRON 2MG/ML, 2ML IVPush PRN (12:10)
[2020-08-18] MEDS ORDERED: HYDROmorphone 4MG TABLET PO PRN (13:00)
[2020-08-18] MEDS ORDERED: HYDROmorphone 2MG TABLET ONE ×2 (13:31→17:18)
[2020-08-18 14:45] VITALS: BP 132/97
[2020-08-18] MEDS: HYDROmorphone 1 MG/ML, 1ML INJ IV PRN ×3 (14:52→21:16)
[2020-08-18] MEDS: HYDROmorphone 2MG TABLET PO PRN ×3 (17:21→23:28)
[2020-08-18 20:10] VITALS: BP 143/99
[2020-08-19] MEDS: HYDROmorphone 1 MG/ML, 1ML INJ IV PRN ×4 (00:22→10:08)
[2020-08-19 00:25] VITALS: BP 140/93
[2020-08-19] MEDS: HYDROmorphone 2MG TABLET PO PRN ×4 (02:33→12:25)
[2020-08-19] MEDS: metroNIDAZOLE 250 MG TABLET PO SCH ×2 (02:33→08:37)
[2020-08-19] MEDS: D5%-0.45NACL+KCL 20MEQ 1,000 ML IV SCH (02:34)
[2020-08-19] MEDS ORDERED: TETRACYCLINE HCL 250 MG CAPSULE ONE ×2 (02:40)
[2020-08-19] MEDS: TETRACYCLINE HCL 250 MG CAPSULE PO SCH ×2 (02:42→08:56)
[2020-08-19] MEDS: ONDANSETRON 2MG/ML, 2ML IVPush PRN (04:53)
[2020-08-19 05:09] LABS: ANION GAP 7 mmol/L (5-15); CALCIUM 8.5 mg/dL (8.5-10.1); CHLORIDE 111 mmol/L (98-107); CREATININE 0.68 mg/dL (0.55-1.02)
[2020-08-19] MEDS: PINK BISMUTH 87.33 MG/5 ML ORAL SUSP PO SCH ×2 (05:35→11:05)
[2020-08-19] MEDS: OMEPRAZOLE 20 MG CAPSULE.DR PO SCH (05:35)
[2020-08-19 06:49] VITALS: BP 147/89
[2020-08-19] MEDS: DOCUSATE 100 MG CAPSULE PO SCH (09:00)
[2020-08-19] MEDS: BISACODYL 10 MG SUPP PR SCH (09:00)
[2020-08-19] MEDS: ENOXAPARIN 40 MG/0.4 ML SQ SCH (09:34)
[2020-08-19] MEDS ORDERED: [UNRECOGNIZED DRUG - CODE] PO (11:41)
[2020-08-19] MEDS ORDERED: HYDR2TAB40 PO (11:41)
[2020-08-19] MEDS ORDERED: TETR-16 PO (11:41)
[2020-08-19] MEDS ORDERED: OMEP-110 PO (11:41)
[2020-08-19] MEDS ORDERED: METR250T18 PO (11:41)
== END 2020-08-19 14:21 | disposition home or self-care (01) | DRG 440 ==
LOC: ED 05:39 → EDIP 07:13 → 3N 09:21
PROVIDERS: ADMIT Internal Medicine; ATTEND Family Medicine
PROC: 02HV33Z Insertion of Infusion Device into Superior Vena Cava, Percutaneous Approach (ICD-10-PCS; principal; 2020-08-15)
PROC: B518ZZA Fluoroscopy of Superior Vena Cava, Guidance (ICD-10-PCS; 2020-08-15)
PROC: B548ZZA Ultrasonography of Superior Vena Cava, Guidance (ICD-10-PCS; 2020-08-15)
DX: K85.00 Idiopathic acute pancreatitis without necrosis or infection (principal); K29.60 Other gastritis without bleeding; B96.81 Helicobacter pylori [H. pylori] as the cause of diseases classified elsewhere; E16.2 Hypoglycemia, unspecified; G43.909 Migraine, unspecified, not intractable, without status migrainosus; K90.0 Celiac disease; Z88.5 Allergy status to narcotic agent; Z88.8 Allergy status to other drugs, medicaments and biological substances; Z90.49 Acquired absence of other specified parts of digestive tract; N92.6 Irregular menstruation, unspecified
CPT/HCPCS: 36415; 36573; 74170; 80048; 80053; 81001; 81003; 82150; 83690; 84703; 85025; 87086; 96374; 96375; G0378; J1170; J1650; J2405; J2550; J3480; Q9967; C1751; J2765; J7030; J7120

== ENCOUNTER 2020-08-23 09:19 | Day surgery (SDC) | payer BC ==
[~2020-08-23] VITALS: Ht 175.3 cm; Wt 67.9 kg
[~2020-08-23 09:19] MED LIST changes: +HYDR2TAB40 PO; +METR250T18 PO; +OMEP-110 PO; +TETR-16 PO; +[UNRECOGNIZED DRUG - CODE] PO
[2020-08-23] MEDS ORDERED: MIDAZOLAM 1 MG/ML, 2ML ONE (09:52)
[2020-08-23] MEDS ORDERED: PROPOFOL 50 ML ONE (09:52)
[2020-08-23 10:01] VITALS: BP 128/89
[2020-08-23] MEDS ORDERED: CHLORHEXIDINE 15 ML UDC ONE (10:09)
[2020-08-23] MEDS ORDERED: CHLORHEXIDINE 15 ML UDC PO ONE (10:30)
[2020-08-23] MEDS ORDERED: LACTATED RINGERS 1,000 ML IV SCH (10:30)
[2020-08-23 10:35] LABS: HCG UR SG 1.027 (1.003-1.030)
[2020-08-23] MEDS ORDERED: hydrALAzine 20 MG/ML, 1ML ONE (11:45)
[2020-08-23] MEDS ORDERED: hydrALAzine 20 MG/ML, 1ML IV PRN (12:00)
== END 2020-08-23 13:00 | disposition home or self-care (01) ==
LOC: OUT 09:19
PROVIDERS: ATTEND Internal Medicine Geriatric Medicine
DX: K85.00 Idiopathic acute pancreatitis without necrosis or infection (principal); K90.0 Celiac disease; Z20.822 Contact with and (suspected) exposure to COVID-19; Z88.5 Allergy status to narcotic agent; Z88.8 Allergy status to other drugs, medicaments and biological substances
CPT/HCPCS: 43239; 43259; 81025; 87635; 88305; J0360; J2250; J2704; J7120